=== PATIENT | female | born 1995 | race Caucasian/White ===

== ENCOUNTER 2016-11-05 18:25 | Inpatient (IN) | payer BC, OTHER ==
[~2016-11-05] VITALS: Ht 160 cm; Wt 66.0 kg
[2016-11-05] MEDS ORDERED: ONDANSETRON 4 MG INJ IV STA (20:15)
[2016-11-05] MEDS ORDERED: KETOROLAC 15 MG INJ IV STA (20:15)
[2016-11-05] MEDS ORDERED: SOD CHLORIDE 0.9% 500 ML IV ONE (20:30)
[2016-11-05 20:50] LABS: ADD SCAN DIFF NO
[2016-11-05 20:51] LABS: BASOPHILS % 0.3 % (0.0-2.0); EOSINOPHILS % 0.3 % (0.0-7.0); HEMATOCRIT 37.1 % (37.0-47.0); HEMOGLOBIN 11.9 g/dl (12.0-16.0); LYMPHOCYTES # 3.6 10^3/ul (0.8-2.9); LYMPHOCYTES % 23.1 % (18.0-55.0); MEAN CORPUSCULAR HEMOGLOBIN 25.2 pg (29.0-33.0); MEAN CORPUSCULAR HGB CONC 32.1 g/dl (32.0-37.0); MEAN CORPUSCULAR VOLUME 78.4 fl (72.0-104.0); MEAN PLATELET VOLUME 10.2 fl (7.4-10.4); MONOCYTE # 0.7 10^3/ul (0.3-0.9); MONOCYTES % 4.8 % (0.0-13.0); NEUTROPHIL # 10.9 10^3/ul (1.6-7.5); PLATELET COUNT 136 10^3/UL (140-415); RED BLOOD COUNT 4.73 10^6/ul (4.20-5.40); RED CELL DISTRIBUTION WIDTH 15.3 % (11.5-14.5); WHITE BLOOD COUNT 15.4 10^3/ul (4.8-10.8)
[2016-11-05 20:54] LABS: ADD UMIC YES; URINE BILIRUBIN (Dip) NEGATIVE (NEGATIVE); URINE BLOOD (Dip) NEGATIVE (NEGATIVE); URINE COLOR LT. YELLOW (YELLOW); URINE GLUCOSE (Dip) NEGATIVE (NEGATIVE); URINE KETONES (Dip) NEGATIVE (NEGATIVE); URINE LEUKOCYTE ESTERASE (Dip) TRACE (NEGATIVE); URINE NITRITE (Dip) NEGATIVE (NEGATIVE); URINE TOTAL PROTEIN (Dip) NEGATIVE (NEGATIVE); URINE UROBILINOGEN (Dip) 0.2 E.U./dL (0.1-1.0)
[2016-11-05 21:08] LABS: ALBUMIN 4.5 g/dl (3.3-4.9); POTASSIUM 3.4 mmol/L (3.5-5.1)
[2016-11-05 21:10] LABS: BILIRUBIN,INDIRECT 0.4 mg/dl (0-1.1); BILIRUBIN,TOTAL 0.4 mg/dl (0.2-1.3); CREATININE 0.5 mg/dl (0.44-1.00)
[2016-11-05 21:11] LABS: ALBUMIN/GLOBULIN RATIO 1.18; TOTAL PROTEIN 8.3 g/dl (6.1-8.1)
[2016-11-05 21:12] LABS: CALCIUM 9.1 mg/dl (8.4-10.2)
[2016-11-05 21:16] LABS: SQUAMOUS EPITHELIAL CELL,UR FEW; URINE RBCS 0-2 /HPF (0)
[2016-11-05 21:17] LABS: BACTERIA,URINE FEW
--- NOTE | 2016-11-05 21:42 | RADRPT ---
PROCEDURE: CT abdomen and pelvis without intravenous contrast. CLINICAL INDICATION: Pain. TECHNIQUE: CT of the abdomen/pelvis was performed utilizing axial images with reconstructions in s agittal and coronal planes. The administered radiation dose is CTDI 6.5 mGy, DLP 372 mGy-cm. COMPARISON: No pertinent prior examinations were submitted for comparison. FINDINGS: Visualized Chest: Foreign 5 mm subpleural nodules are noted within the left lower lobe on images 41 and 48 of series 3. Abdomen: The spleen, pancreas, gallbladder,and adrenal glands are unremarkable. The liver is markedly, dif fusely decreased in attenuation, compatible with hepatic steatosis. The kidneys are without hydronephrosis. No definite urinary calculi are seen. The appendix is mildly enlarged, measuring up to 7 mm. There is some mild periappendiceal inflammat ory changes. No regional fluid collections identified. There is no evidence of bowel obstruction. There is no evidence of intra-abdominal adenopathy or free fluid. Pelvis: There is no evidence of pelvic adenopathy. The uterus and ovaries are without enlargement. The uri nary bladder is unremarkable. There is no pelvic free fluid. Osseous structures: Unremarkable. IMPRESSION: Appendicitis. Hepatic steatosis. Small 4 and 5 mm nodules in the left lower lobe. If the patient has a history of smoking or neoplasm , follow-up can be obtained in 12 months. RPTAT: HIKT .Geovanny Ruano MD, Date Time Electronically viewed and signed by .Geovanny Ruano MD, on 11/05/2016 21:42 .T/
--- NOTE | 2016-11-05 22:10 | ERD ---
ER Documentation Chief Complaint Date/Time DATE: 11/05/16 TIME: 21:59 Chief Complaint rt lower bad pain today with nausea HPI This pleasant 18-year-old female brought in today to emergency department by her father for right lower abdominal pain all day. Patient reports pain started after eating breakfast this morning, patient states she went to school but pain has not stopped all day. Pain currently is 8/10 on pain scale. Reports position of comfort side leaning away from the pain helps. Patient has felt nauseated with diarrhea and vomiting. Decreased appetite, patient denies dysuria, fever or chills. Patient's last menstrual period was 10/13/2016. Patient reports reports recent diagnosis of lupus and history of low platelets for the last 2 years. ROS All systems reviewed and are negative except as per history of present illness. Allergies Allergies: Coded Allergies: No Known Allergy (Unverified , 12/20/13) PMhx/Soc History of Surgery: No Anesthesia Reaction: No Hx Neurological Disorder: No Hx Cardiac Disorders: No Hx Psychiatric Problems: No Hx Miscellaneous Medical Probl: Yes (ANEMIA) Hx Alcohol Use: No Hx Substance Use: No Hx Tobacco Use: No Smoking Status: Never smoker Physical Exam Vitals Vital Signs Date Time Temp Pulse Resp B/P Pulse Ox O2 Delivery O2 Flow Rate FiO2 11/05/16 18:28 98.1 96 18 124/62 98 Physical Exam Const: Patient is obviously uncomfortable, lying on gurney in no acute distress Head: Atraumatic Eyes: Normal Conjunctiva, PERRLA, EOMI ENT: Normal External Ears, Nose and Mouth. Mucous membranes moist Neck: Resp: Clear to auscultation bilaterally Cardio: Regular rate and rhythm, no murmurs Abd: Abdomen soft, positive McBurney's point tenderness, positive psoas sign. Skin: No petechiae or rashes Back: Ext: Neur: Awake and alert Psych: Normal Mood and Affect Result Diagram: 11/05/16202411/05/162024 Results 24 hrs Laboratory Tests Test 11/05/16 20:25 White Blood Count 15.410^3/ul Red Blood Count 4.7310^6/ul Hemoglobin 11.9g/dl Hematocrit 37.1% Mean Corpuscular Volume 78.4fl Mean Corpuscular Hemoglobin 25.2pg Mean Corpuscular Hemoglobin Concent 32.1g/dl Red Cell Distribution Width 15.3% Platelet Count 66507^3/UL Mean Platelet Volume 10.2fl Neutrophils % 71.0% Lymphocytes % 23.1% Monocytes % 4.8% Eosinophils % 0.3% Basophils % 0.3% Nucleated Red Blood Cells % 0.0/100WBC Neutrophils # 10.910^3/ul Lymphocytes # 3.610^3/ul Monocytes # 0.710^3/ul Eosinophils # 0.010^3/ul Basophils # 0.010^3/ul Nucleated Red Blood Cells # 0.010^3/ul Prothrombin Time 12.4Sec Prothrombin Time Ratio 1.0 INR International Normalized Ratio 0.92 Activated Partial Thromboplast Time 32.4Sec Urine Color LT. YELLOW Urine Clarity CLEAR Urine pH 6.0 Urine Specific [place] 1.015 Urine Ketones NEGATIVE Urine Nitrite NEGATIVE Urine Bilirubin NEGATIVE Urine Urobilinogen 0.2 E.U./dL Urine Leukocyte Esterase TRACE Urine Microscopic RBC 0-2/HPF Urine Microscopic WBC 0-2/HPF Urine Squamous Epithelial Cells FEW Urine Bacteria FEW Urine Hemoglobin NEGATIVE Urine Glucose NEGATIVE% Urine Total Protein NEGATIVE Sodium Level 137mmol/L Potassium Level 3.4mmol/L Chloride Level 100mmol/L Carbon Dioxide Level 22mmol/L Anion Gap 18 Blood Urea Nitrogen 10mg/dl Creatinine 0.50mg/dl Glucose Level 84mg/dl Calcium Level 9.1mg/dl Total Bilirubin 0.4mg/dl Direct Bilirubin 0.00mg/dl Indirect Bilirubin 0.4mg/dl Aspartate Amino Transf (AST/SGOT) 40IU/L Alanine Aminotransferase (ALT/SGPT) 57IU/L Alkaline Phosphatase 86IU/L Total Protein 8.3g/dl Albumin 4.5g/dl Globulin 3.80g/dl Albumin/Globulin Ratio 1.18 Current Medications Medications (Trade) Dose Ordered Sig/Mike Route PRN Reason Start Time Stop Time Status Last Admin Dose Admin Ondansetron HCl (Zofran Inj) 4 mg ONCE STAT IV 11/05/16 20:15 11/05/16 20:19 DC 11/05/16 20:40 Ketorolac Tromethamine 15 mg 15 mg ONCE STAT IV 11/05/16 20:15 11/05/16 20:19 DC 11/05/16 20:40 Sodium Chloride 500 ml @ 500 mls/hr Q1H ONCE IV 11/05/16 20:30 11/05/16 21:29 DC 11/05/16 20:40 Sodium Chloride 1,000 ml @ 1,000 mls/hr Q1H STAT IV 11/05/16 22:25 11/05/16 23:24 DC 11/05/16 22:53 Piperacillin Sod/ Tazobactam Sod (Zosyn 3.375gm/ 100 ml (Pmx)) 100 ml @ 200 mls/hr ONCE STAT IVPB 11/05/16 22:25 11/05/16 22:54 DC 11/05/16 22:48 Interpretation text CBC shows no evidence of hemorrhage, WBCs elevated suggest infection Chemistry shows no evidence of significant electrolyte abnormalities or renal insufficiency Liver function tests shows no evidence of acute biliary or hepatic dysfunction Urinalysis negative for leukocytosis U hCG negative for evidence of Procedures/MDM PROCEDURE: CT abdomen and pelvis without intravenous contrast. CLINICAL INDICATION: Pain. TECHNIQUE: CT of the abdomen/pelvis was performed utilizing axial images with reconstructions in sagittal and coronal planes. The administered radiation dose is CTDI 6.5 mGy, DLP 372 mGy-cm. COMPARISON: No pertinent prior examinations were submitted for comparison. FINDINGS: Visualized Chest: Foreign 5 mm subpleural nodules are noted within the left lower lobe on images 41 and 48 of series 3. Abdomen: The spleen, pancreas, gallbladder,and adrenal glands are unremarkable. The liver is markedly, diffusely decreased in attenuation, compatible with hepatic steatosis. The kidneys are without hydronephrosis. No definite urinary calculi are seen. The appendix is mildly enlarged, measuring up to 7 mm. There is some mild periappendiceal inflammatory changes. No regional fluid collections identified. There is no evidence of bowel obstruction. There is no evidence of intra-abdominal adenopathy or free fluid. Pelvis: There is no evidence of pelvic adenopathy. The uterus and ovaries are without enlargement. The urinary bladder is unremarkable. There is no pelvic free fluid. Osseous structures: Unremarkable. IMPRESSION: Appendicitis. Hepatic steatosis. Small 4 and 5 mm nodules in the left lower lobe. If the patient has a history of smoking or neoplasm, follow-up can be obtained in 12 months. .Geovanny Ruano MD, MD Date Time Electronically viewed and signed by .Geovanny Ruano MD, on 11/05/2016 21:42 This pleasant 20-year-old female brought into emergency department today by father reports sudden onset of right lower quadrant abdominal pain, pain is been constant 8/10 on pain scale all day. Symptoms started after breakfast, patient went to school, patient states pain continued through school. Patient reports nausea, vomiting, and diarrhea. Appendicitis is suspected, WBCs elevated, CAT scan of the abdomen and pelvis without contrast findings as follows. Visualized chest performed 5 mm subpleural nodules are noted within the left lower lobe abdomen: The spleen pancreas gallbladder and adrenal glands are unremarkable. The liver is markedly diffusely decreased in attenuation compatible with hepatic stenosis. The kidneys are without hydronephrosis. No definite urinary calculi are seen. The appendix is mildly enlarged measuring up to 7 mm. There is some mild nguyen-appendageal inflammatory changes. No regional fluid collection identified. There is no evidence of bowel obstruction. There is no evidence of intra-abdominal adenopathy or free fluid. Findings discussed with patient and father who preferred to start antibiotics before surgery. General surgeon . At bedside, case discussed, physician ordered Zosyn, patient will be admitted all care turned over to at this time. Departure Diagnosis: Primary Impression: Appendicitis Appendicitis type: acute appendicitis Acute appendicitis type: unspecified acute appendicitis type Qualified Code: K35.80 - Acute appendicitis, unspecified acute appendicitis type Condition: Calderon BUENOKATERYNA November 05, 2016 22:10
[2016-11-05] MEDS ORDERED: SOD CHLORIDE 0.9% 1,000 ML IV STA (22:25)
[2016-11-05] MEDS ORDERED: PIPER-TAZO 3.375 GM IV (PMX) 100 ML IVPB STA (22:25)
[2016-11-05 23:25] LABS: INR 0.92; PROTIME 12.4 Sec (12.2-14.2)
[2016-11-05 23:26] LABS: PARTIAL THROMBOPLASTIN TIME 32.4 Sec (25.0-35.0)
[2016-11-06 00:37] VITALS: TEMP 98.6
[2016-11-06] MEDS ORDERED: ONDANSETRON 4 MG INJ IV PRN (01:30)
[2016-11-06] MEDS ORDERED: NACL 0.9% 3 ML SYG IV SCH (01:30)
[2016-11-06] MEDS ORDERED: morphine 2 MG INJ IV PRN (01:30)
--- NOTE | 2016-11-06 01:33 | HP ---
Date/Time of Note Date/Time of Note DATE: 11/06/16 TIME: Assessment/Plan VTE Prophylaxis VTE Prophylaxis Intervention: SCD's Lines/Catheters IV [facility] Peripheral IV Central line still needed: No Urinary Cath still in place: No Assessment/Plan Chief Complaint/Hosp Course This is a 20-year-old female being admitted to [facility] for: #1 acute appendicitis: Confirmed via CT scan. At this time patient would like to hold off on surgery. Started on IV Zosyn 3.375 every 6 hours. N.p.o. normal saline at [address] Carney of general surgery on board. Check CBC and BMP in the a.m. #2 Leukocytosis; likely secondary infection currently on antibiotics. Afebrile continue to follow #3 Nodules: Small 4 and 5 mm nodules in the left lower lobe seen on CT. patient denies any cigarette smoking in the past though she did smoke marijuana. It was recommended to have a follow-up CAT scan in 12 months. #4 DVT and GI prophylaxis, SCDs and H2 tomi Problems: HPI/ROS Admit Date/Time Admit Date/Time November 05, 2016 at 22:44 Hx of Present Illness This is a 20-year-old female coming in [facility] with right lower quadrant pain 1 day. Patient states she started experiencing right lower quadrant abdominal pain, she also started having some nausea and vomiting. She denies ever having these symptoms before. Denies any fevers. Patient was diagnosed with acute appendicitis in the ER. She was seen by the surgeon Dr. Carney. The patient and her father did not want to go immediately for surgery. They prefer to be on antibiotics at this time. Risks and benefits were discussed with the patient. Currently on antibiotics. Surgery will follow the patient. Allergies: None Medications: None ROS Const: Nausea/vomiting, no fevers Eyes : No pain discharge or redness or change in visual acuity ENT: No pain, sore throat, congestion, congestion, dysphagia or discharge Respiratory: No shortness of breath, cough, sputum, wheezing, or pleuritic pain Cardiovascular: No chest pain, palpitation, PND, or edema GI : Negative except for what stated in the HPI Genitourinary: No dysuria, hematuria, flank pain , discharge or CVA tenderness Musculoskeletal: No joint pain, back pain, neck pain, restricted range of motion in neck or joints Skin: No rash, bruising or hives Neuro: No headache, dizziness, syncope, seizure, focal weakness Endocrine: No polyuria, polydipsia, temperature intolerance Psych: No hallucination, depression, anxiety or suicidal ideation PMH/Family/Social Past Medical History Lupus, anemia, scoliosis Past Surgical History Lip surgery Family History Significant Family History: no pertinent family hx Social History Alcohol Use: occasionally Smoking Status: Never smoker Drug Use: marijuana Exam/Review of Systems Vital Signs Vitals Vital Signs Date Time Temp Pulse Resp B/P Pulse Ox O2 Delivery O2 Flow Rate FiO2 11/06/16 00:37 98.6 98 20 121/81 100 Room Air Exam Exam General: This is a well-developed female in mild distress The patient is alert oriented -3 HEENT: Atraumatic, normocephalic. The pupils are equal, round and reactive. Extraocular motor are intact Neck: Supple with full range of motion. No rigidity or meningismus Chest: Nontender Lungs: Clear to auscultation bilaterally no crackles rales or wheezing Heart: Normal S1-S2, Regular rhythm and rate. No murmur, S3, or S4 Abdomen: Soft, right lower quadrant tenderness to palpation, positive rebound tenderness, positive bowel sounds Extremities: Normal to inspection, no edema no cyanosis Neurologic: Normal mental status, speech normal, cranial nerves II through XII are intact, motor and sensory are intact, no focal weakness Additional Comments CT of the abdomen pelvis IMPRESSION: Appendicitis. Hepatic steatosis. Small 4 and 5 mm nodules in the left lower lobe. If the patient has a history of smoking or neoplasm, follow-up can be obtained in 12 months Labs Result Diagram: 11/05/16202411/05/162024 LAITH RON November 06, 2016 01:29
[2016-11-06] MEDS: FAMOTIDINE 20 MG INJ IV SCH ×3 (01:56→21:23)
[2016-11-06] MEDS: SOD CHLORIDE 0.9% 1,000 ML IV SCH ×2 (01:57→13:05)
[2016-11-06 02:00] VITALS: BP 128/77; RESP 18
--- NOTE | 2016-11-06 02:14 | EN ---
Date/Time of Note Date/Time of Note DATE: 11/06/16 TIME: 02:08 ER Progress Note HPI: Past medical history: 20-year-old young woman with complaints of right lower quadrant abdominal pain 1 day associated with nausea vomiting diarrhea, tactile fevers. She has no appetite at this time, denies dysuria, no trauma, no vaginal discharge or bleeding, no chest pain or shortness of breath. Physical exam: GENERAL: Well-developed, well-nourished, well-hydrated, in no apparent distress , looks nontoxic in appearance HEENT: Moist mucous membranes, pink conjunctiva, no cervical spine tenderness or step-off deformities, no goiter, no jaundice or icterus, extraocular movements intact without pain. No submandibular induration, and no pharyngeal erythema NEURO: Alert and oriented 3, cranial nerves II through XII intact bilaterally, pupils equal round reactive to light, no focal deficits or facial asymmetry, sensation intact distally Strength 5/5 in upper and lower extremities bilaterally CARDIAC: Regular rate and rhythm, no murmurs rubs or gallops LUNGS: Clear bilaterally no wheezing crackles or stridor ABDOMEN: Positive McBurney's point tenderness, no rebound, no psoas sign no obturator sign. Normoactive bowel sounds SKIN: Warm and dry to touch, no abrasions, contusions, or hematomas, no lacerations, no ecchymosis, no target lesions, and without ulcers EXTREMITIES: No clubbing cyanosis or edema, calves are bilaterally symmetrical, no Homans sign, no popliteal cord sign. Distal pulses equal and bilateral PSYCH: Normal affect without agitation or irritability Medical decision making: Labs did reveal a leukocytosis of 15, otherwise unremarkable. CT of the abdomen and pelvis revealed acute appendicitis measuring about 7 mm in size. I immediately consulted the on-call surgeon Dr. Carney regarding the patient's presentation, symptomatology, and CT scan findings. He kindly agreed to see the patient and prep her for surgery although after seeing her at the bedside in discussing the case, the patient and her father decided they wanted to defer emergent operative intervention for IV antibiotics. The risks and possible complications of doing this was provided to the patient and her father by the surgeon at the bedside. Patient will be kept n.p.o. I administered Zosyn 3.375 g IV. Diagnostic impression: Acute appendicitis SEBASTIEN BARRIGA MD November 06, 2016 02:14
--- NOTE | 2016-11-06 03:40 | CONS ---
DATE OF ADMISSION: 11/05/2016 DATE OF CONSULTATION: 11/05/2016 HISTORY OF PRESENT ILLNESS: Ms. Hilton is a 20-year-old female who presented to the [facility] this evening after developing acute onset of abdominal pain this morning after eating breakfast. Her symptoms persisted and localized to her right lower quadrant. She had nausea, but denies fevers or chills. She presented to the ER where her workup was consistent with acute appendi citis. PAST MEDICAL HISTORY: Noncontributory. PAST SURGICAL HISTORY: None. MEDICATIONS: None. ALLERGIES: NO KNOWN DRUG ALLERGIES. SOCIAL HISTORY: Denies drinking, drug use or smoking. PHYSICAL EXAMINATION: GENERAL: She is a well-nourished, well-developed female in no apparent distress. VITAL SIGNS: She is afebrile. Vital signs stable. CHEST: Clear to auscultation bilaterally. HEART: Regular rate and rhythm. ABDOMEN: Soft, nondistended but significant right lower quadrant tenderness. LABORATORY DATA: Revealed a white count of 15, hematocrit of 37 and platelets of 136. Sodium is 13 7, potassium 3.4, chloride 100, CO2 22, BUN and creatinine 10 and 0.5 and a glucose of 84. Her CT o f the abdomen and pelvis reveals appendicitis. ASSESSMENT AND PLAN: Ms. Hollingsworth is a 20-year-old female with acute appendicitis. I discussed with the patient and her father the need for surgery. The patient as well as the dad wishes to try IV an tibiotics. I told the patient that this is her decision as she is 20 and she agrees. I did discuss with the patient that there are some study showing that there is some success with IV antibiotics; however, there is a chance of recurrence; there is also a chance of a tumor causing the appendicitis and there is a chance that she will not respond to IV antibiotics. The patient understands that sh e may perforate or rupture while trying this course. The patient wants to try IV antibiotics for 24 hours and see how she does. If she does not improve, then she will possibly agree to surgery. I t old the patient I would not be around till tomorrow night once again to reevaluate the patient. The patient understands all the risks, benefits and alternatives for medical management of appendicitis and wishes to proceed with IV antibiotics. Dictated By: DALLIN MARISCAL/HUONG Conf#: [id number] [facility]#: [id number]
[2016-11-06 03:45] VITALS: Ht 160 cm; Wt 66.0 kg
[2016-11-06] MEDS: PIPER-TAZO 3.375 GM IV (PMX) 100 ML IVPB SCH ×4 (06:12→23:43)
[2016-11-06 07:37] VITALS: BP 108/54; RESP 19
[2016-11-06 08:39] LABS: ADD SCAN DIFF NO
[2016-11-06 09:05] LABS: BASOPHILS % 0.2 % (0.0-2.0); EOSINOPHILS # 0.1 10^3/ul (0.0-0.5); EOSINOPHILS % 0.9 % (0.0-7.0); HEMATOCRIT 34.8 % (37.0-47.0); HEMOGLOBIN 11.1 g/dl (12.0-16.0); LYMPHOCYTES # 2.9 10^3/ul (0.8-2.9); LYMPHOCYTES % 36.5 % (18.0-55.0); MEAN CORPUSCULAR HEMOGLOBIN 25.3 pg (29.0-33.0); MEAN CORPUSCULAR HGB CONC 31.9 g/dl (32.0-37.0); MEAN CORPUSCULAR VOLUME 79.5 fl (72.0-104.0); MEAN PLATELET VOLUME 10.4 fl (7.4-10.4); MONOCYTE # 0.6 10^3/ul (0.3-0.9); MONOCYTES % 6.9 % (0.0-13.0); NEUTROPHIL # 4.4 10^3/ul (1.6-7.5); NEUTROPHILS % 55.1 % (30.0-74.0); PLATELET COUNT 112 10^3/UL (140-415); RED BLOOD COUNT 4.38 10^6/ul (4.20-5.40); RED CELL DISTRIBUTION WIDTH 15.5 % (11.5-14.5)
--- NOTE | 2016-11-06 11:28 | PN ---
DATE: 11/06/2016 SUBJECTIVE: The patient remains stable following admission this morning Mild abdominal discomfort, but states this has improved. PHYSICAL EXAMINATION: VITAL SIGNS: Temperature 98, pulse 77, blood pressure is 108/54, O2 saturation 98% on room air. NECK: Supple. No JVD or lymphadenopathy. CARDIAC: S1, S2, no added sounds or murmurs. CHEST: Diminished air entry bilaterally. ABDOMEN: Soft, nontender. No guarding or rebound. EXTREMITIES: No cyanosis, clubbing or edema. NEUROLOGIC: Grossly intact. IMPRESSION AND PLAN: 1. Acute appendicitis. 2. Pulmonary nodules, likely an incidental finding. 3. Improved leukocytosis. PLAN: 1. Continue IV Zosyn. 2. Will be closely monitored by general surgery. If necessary, will be taken to OR for appendectom y. 3. Continue DVT and GI prophylaxis. 4. Continue n.p.o. for now. Dictated By: MIGUE NAVAS/HUONG Conf#: [id number] DID#: [id number]
[2016-11-06 12:15] VITALS: BP 106/59; RESP 19
[2016-11-06 16:04] VITALS: BP 106/59; PULSE 74; RESP 18
[2016-11-06 19:00] VITALS: BP 109/56; RESP 18
--- NOTE | 2016-11-06 23:11 | PN ---
DATE: 11/06/2016 SUBJECTIVE: Ms. Hilton is hospital day 1 from acute appendicitis. The patient is feeling better. OBJECTIVE: VITAL SIGNS: She is afebrile. Vital signs stable. ABDOMEN: Soft, nontender, nondistended with no right lower quadrant tenderness. LABORATORY DATA: Reveal a white count of 8, hematocrit of 35, and platelets 112. ASSESSMENT AND PLAN: Ms. Hilton is hospital day 1 with acute appendicitis. She is responding well to IV antibiotics. RECOMMENDATIONS: Recommend 3 days of IV antibiotics and then 10 days of oral antibiotics for medica l treatment for ____. The patient understood the above need to stay 1 more day in the hospital. I advanced her diet to clears. If she tolerates, we can advance to a soft diet. Possibly discharge o n Thursday. Dictated By: DALLIN MARISCAL/HUONG Conf#: [id number] DID#: [id number] CC: Yimi Jenkins;*EndCC*
[2016-11-07] MEDS: SOD CHLORIDE 0.9% 1,000 ML IV SCH (02:32)
[2016-11-07 05:34] LABS: ADD SCAN DIFF NO
[2016-11-07 05:38] LABS: BASOPHILS % 0.5 % (0.0-2.0); EOSINOPHILS # 0.1 10^3/ul (0.0-0.5); EOSINOPHILS % 1.5 % (0.0-7.0); HEMATOCRIT 34.7 % (37.0-47.0); HEMOGLOBIN 11.3 g/dl (12.0-16.0); LYMPHOCYTES % 36.9 % (18.0-55.0); MEAN CORPUSCULAR HEMOGLOBIN 25.6 pg (29.0-33.0); MEAN CORPUSCULAR HGB CONC 32.6 g/dl (32.0-37.0); MEAN CORPUSCULAR VOLUME 78.7 fl (72.0-104.0); MEAN PLATELET VOLUME 10.4 fl (7.4-10.4); MONOCYTE # 0.6 10^3/ul (0.3-0.9); NEUTROPHIL # 4.2 10^3/ul (1.6-7.5); NEUTROPHILS % 52.7 % (30.0-74.0); PLATELET COUNT 112 10^3/UL (140-415); RED BLOOD COUNT 4.41 10^6/ul (4.20-5.40)
[2016-11-07 06:02] LABS: CALCIUM 8.7 mg/dl (8.4-10.2); CREATININE 0.59 mg/dl (0.44-1.00); POTASSIUM 4.2 mmol/L (3.5-5.1)
[2016-11-07] MEDS: PIPER-TAZO 3.375 GM IV (PMX) 100 ML IVPB SCH ×3 (06:14→17:41)
[2016-11-07 07:42] VITALS: BP 101/56; RESP 19
[2016-11-07] MEDS ORDERED: GLUCOSE GEL 15 GRAM TUBE ONE (08:39)
[2016-11-07] MEDS: FAMOTIDINE 20 MG INJ IV SCH ×2 (08:54→20:38)
[2016-11-07] MEDS: DEXTROSE 5%-0.45% NACL 1,000 ML IV SCH ×3 (09:22→23:15)
[2016-11-07] MEDS: ACCU-CHEK XX SCH ×4 (09:22→20:38)
--- NOTE | 2016-11-07 14:29 | PN ---
DATE: 11/07/2016 SUBJECTIVE: Ms. Hilton remains stable this morning, still has mild right lower quadrant pain. Bonnie erating clear liquids and Jell-O per general surgery's recommendations. PHYSICAL EXAMINATION: VITAL SIGNS: Temperature 98, pulse 73, blood pressure 101/56, O2 saturation 98% on room air. NECK: Supple. No JVD or lymphadenopathy. CARDIAC: S1, S2, no added sounds or murmurs. CHEST: Diminished air entry bilaterally but no rales or wheezes. ABDOMEN: Soft, nontender. No guarding or rebound. EXTREMITIES: No cyanosis, clubbing, edema. NEUROLOGIC: No focal deficits. LABORATORY DATA: White count 8.0, hemoglobin 11.3. Chemistry within normal limits. IMPRESSION AND PLAN: Acute appendicitis currently managed medically. Will continue 3 days of IV a ntibiotics per general surgery request, continue to advance diet as tolerated. Hopefully stable fo r discharge tomorrow on p.o. antibiotics. Dictated By: MIGUE NAVAS/HUONG Conf#: [id number] DID#: [id number]
--- NOTE | 2016-11-07 16:56 | PN ---
DATE: 11/07/2016 SUBJECTIVE: Ms. Hilton is hospital day 2 from acute appendicitis. The patient is feeling better. She is tolerating clears with some diarrhea. OBJECTIVE: VITAL SIGNS: She is afebrile. Vital signs stable. ABDOMEN: Soft, nontender, nondistended. LABORATORY DATA: Today reveal white count of 8, hematocrit of 35, and platelets of 112. ASSESSMENT AND PLAN: Ms. Hilton is a 20-year-old female recovering from acute appendicitis with IV antibiotics. 1. Begin soft diet tomorrow. 2. Discharge home on oral antibiotics. Dictated By: DALLIN MARISCAL/NTS Conf#: [id number] DID#: [id number]
[2016-11-07 19:00] VITALS: BP 108/59; RESP 18
[2016-11-08] MEDS: PIPER-TAZO 3.375 GM IV (PMX) 100 ML IVPB SCH ×3 (00:40→12:36)
[2016-11-08] MEDS: ACCU-CHEK XX SCH ×4 (01:00→12:38)
[2016-11-08 08:12] VITALS: BP 110/60; RESP 19
[2016-11-08] MEDS: FAMOTIDINE 20 MG INJ IV SCH (08:40)
--- NOTE | 2016-11-08 09:14 | PN ---
DATE: 11/08/2016 SUBJECTIVE: Ms. Hilton is now hospital day 3 from her perforated appendicitis. The patient is hav ing diarrhea overnight. She denies abdominal pain. OBJECTIVE VITAL SIGNS: He is afebrile. Vital signs stable. ABDOMEN: Soft, nontender, nondistended. LABORATORY DATA: She did not have labs today. ASSESSMENT AND PLAN: Ms. Hilton is a 20-year-old female recovering from her medical management of acute appendicitis. 1. May discharge home on oral antibiotics if Clostridium difficile is negative. Dictated By: DALLIN MARISCAL/NTS Conf#: [id number] DID#: [id number]
[2016-11-08] MEDS: DEXTROSE 5%-0.45% NACL 1,000 ML IV SCH (10:00)
--- NOTE | 2016-11-08 14:25 | PDOCDIS ---
Discharge Instructions DIAGNOSIS Discharge Diagnosis: Acute appendicitis; pulmonary nodules left lower lobe CONDITION Patient Condition: Fair HOME CARE INSTRUCTIONS: Diet Instructions: Low Fat /CholesterolSpecial Diet: soft diet ACTIVITY: Activity Restrictions: Slowly Increase Activity Do not operate [employer] Bathing Restrictions: no restrictions FOLLOW UP/APPOINTMENTS Appointments Dr. Carney in 1 week primary care physician in 2 weeks SONYA BOYKIN MD November 08, 2016 14:25
[2016-11-08] MEDS ORDERED: METR500T14 PO (14:27)
[2016-11-08] MEDS ORDERED: CIPR500T4 PO (14:27)
--- NOTE | 2016-11-08 14:30 | DS ---
Date/Time of Note Date/Time of Note DATE: 11/08/16 TIME: 14:27 Discharge Summary Admission/Discharge Info Admit Date/Time November 05, 2016 at 22:44 Discharge Date/Time 11/08/2016 Final Diagnosis Acute appendicitis; left lower lobe pulmonary nodule; hepatic steatosis Patient Condition: Fair Consults General surgery; Dr. Carney Procedures CT scan abdomen and pelvis Hx of Present Illness This is a 20-year-old female coming in [facility] with right lower quadrant pain 1 day. Patient states she started experiencing right lower quadrant abdominal pain, she also started having some nausea and vomiting. She denies ever having these symptoms before. Denies any fevers. Patient was diagnosed with acute appendicitis in the ER. She was seen by the surgeon Dr. Carney. The patient and her father did not want to go immediately for surgery. They prefer to be on antibiotics at this time. Risks and benefits were discussed with the patient. Currently on antibiotics. Surgery will follow the patient. Allergies: None Medications: None Hospital Course This is a 20-year-old female being admitted to [facility] for: #1 acute appendicitis: Confirmed via CT scan. At this time patient would like to hold off on surgery. Started on IV Zosyn 3.375 every 6 hours. N.p.o. normal saline at [address] Carney of general surgery on board. Check CBC and BMP in the a.m. #2 Leukocytosis; likely secondary infection currently on antibiotics. Afebrile continue to follow #3 Nodules: Small 4 and 5 mm nodules in the left lower lobe seen on CT. patient denies any cigarette smoking in the past though she did smoke marijuana. It was recommended to have a follow-up CAT scan in 12 months. #4 DVT and GI prophylaxis, SCDs and H2 tomi SUBJECTIVE: Ms. Hilton is now hospital day 3 from her perforated appendicitis. The patient is having diarrhea overnight. She denies abdominal pain. OBJECTIVE VITAL SIGNS: He is afebrile. Vital signs stable. ABDOMEN: Soft, nontender, nondistended. LABORATORY DATA: She did not have labs today. ASSESSMENT AND PLAN: Ms. Hilton is a 20-year-old female recovering from her medical management of acute appendicitis. 1. May discharge home on oral antibiotics if Clostridium difficile is negative. Dictated By: DALLIN CARNEY MD 20-year-old female presented with appendicitis. She had opted for medical treatment. As per her course she is actually done okay I will be discharged home on a week of oral antibiotics. Specifically she will be on metronidazole and Cipro to cover the expected. Possible pathogen Home Meds Active Scripts Ciprofloxacin Hcl* (Ciprofloxacin Hcl*) 500 Mg Tablet, 500 MG PO BID for 7 Days , #14 TAB Prov:SONYA BOYKIN MD 11/08/16 Metronidazole* (Metronidazole*) 500 Mg Tablet, 500 MG PO TID for 7 Days, TAB Prov:SONYA BOYKIN MD 11/08/16 Pending Labs Laboratory Tests Test 11/07/16 17:16 11/07/16 20:36 11/08/16 01:10 11/08/16 05:48 Bedside Glucose 85mg/dL (70-220) 98mg/dL (70-220) 94mg/dL (70-220) 102mg/dL (70-220) Test 11/08/16 08:43 Bedside Glucose 101mg/dL (70-220) Microbiology Date/Time Source Procedure Growth Status 11/08/16 01:05 Feces Clostridium difficile Toxin Assay - Final Complete SONYA BOYKIN MD November 08, 2016 14:30
== END 2016-11-08 17:20 | disposition home or self-care (01) | DRG 395 ==
LOC: FTE 18:25 → MS1 22:44
PROVIDERS: ADMIT Family Medicine; ATTEND Family Medicine
DX: K35.80 Unspecified acute appendicitis (principal); K76.0 Fatty (change of) liver, not elsewhere classified; R91.1 Solitary pulmonary nodule
CPT/HCPCS: 36415; 74176; 80048; 80053; 81001; 81003; 82962; 83036; 85025; 85610; 85730; 87075; 87177; 96374; 96375; J1885; J2405; J2543; J7030; J7040; J7042

== ENCOUNTER 2018-01-25 19:02 | Emergency (ER) | END 2018-01-25 22:20 | disposition home or self-care (01) ==